=== PATIENT | male | born 1980 | race Caucasian/White ===

== ENCOUNTER 2017-04-15 19:43 | Emergency (ER) | payer OTHER ==
[2017-04-15 20:31] VITALS: BP 156/88
[2017-04-15 20:52] LABS: Hematocrit 45.3 % (35.5-45.6); Hemoglobin 15.6 gm/dl (11.8-15.2); Mean Corpuscular HGB Conc 34 % (32-34); Mean Corpuscular Hemoglobin 28 pg (28-32); Mean Corpuscular Volume 82 fl (84-94); Platelet Count 149 K/mm3 (140-440); Red Blood Count 5.53 M/mm3 (3.65-5.03); Red Cell Distribution Width 14.1 % (13.2-15.2)
--- NOTE | 2017-04-15 21:03 | Cat Scan Report ---
FINAL REPORT PROCEDURE: CT HEAD/BRAIN WO CON TECHNIQUE: Computerized tomography of the head was performed without contrast material. HISTORY: HEAD INJURY-C/O BLURRED VISION/LI COMPARISON: No prior studies are available for comparison. FINDINGS: Brain: Brain density appears normal. No evidence of intracranial hemorrhage. No parenchymal hemorrhage, mass lesions or mass effect are seen. No abnormal extraxial fluid collects or masses are seen. Ventricles: Ventricles are normal size and are midline. Bone Windows: No evidence of skull fracture. Paranasal sinuses: Visualized portions appear clear. Mastoid air cells: There are small air-fluid levels in a few of the inferior mastoid air cells on the right. Mastoid air cells bilaterally otherwise are clear. IMPRESSION: Negative unenhanced CT of the brain. No evidence of intracranial hemorrhage or skull fracture. Minimal mastoid air cell disease on the right as described.
--- NOTE | 2017-04-15 21:08 | Cat Scan Report ---
FINAL REPORT PROCEDURE: CT CERVICAL SPINE WO CON TECHNIQUE: Computerized tomography of the cervical spine was performed from the skull base to T1 without contrast material. HISTORY: HEAD INJURY-C/O BLURRED VISION/LI COMPARISON: No prior studies are available for comparison. FINDINGS: No fracture or subluxation is visualized. The prevertebral soft tissues appear normal. Small anterior osteophytic spurs are present at C3-C4, C4-C5, C5-C6 and C6-C7 disc spaces. There is mild posterior osteophytic spurring at C4-C5 overlying a mild disc bulge without cord compression or spinal stenosis. The neural foramina appear adequate. There is asymmetric posterior osteophytic spurring to the right at C5-C6 obscuring a portion the anterior epidural space without spinal stenosis or definite cord compression. The osteophytic spurring is seen overlying a mild disc bulge without focal disc herniation. There is mild facet arthritis visualized bilaterally. IMPRESSION: No fracture or subluxation is seen. Degenerative disc disease and facet arthritis as described..
[2017-04-15 21:12] LABS: BUN/Creatinine Ratio 10; Blood Urea Nitrogen 7 mg/dL (9-20); Calcium 8.5 mg/dL (8.4-10.2); Hemolysis Index 24
--- NOTE | 2017-04-15 21:51 | XRay Report ---
FINAL REPORT PROCEDURE: Three-view right shoulder series TECHNIQUE: Right shoulder radiographs including AP views in internal and external rotation and abduction. CPT 41478 HISTORY: FALL-C/O shoulder PAIN AND SWELLING COMPARISON: No prior studies are available for comparison. FINDINGS: Fracture (s) and/or Dislocation(s): None . Joint space(s): Normal . Soft tissues: Normal . Bone mineralization: Normal . Foreign bodies: None . IMPRESSION: Negative examination
== END 2017-04-16 02:30 | disposition left against medical advice (07) ==
LOC: ED 19:43
DX: R51 Headache (principal); Z53.21 Procedure and treatment not carried out due to patient leaving prior to being seen by health care provider
CPT/HCPCS: 36415; 70450; 72125; 80048; 85027